=== PATIENT | female | born 1960 | race Caucasian/White ===

== ENCOUNTER 2016-09-18 12:55 | Inpatient (IN) | payer OTHER ==
[~2016-09-18] VITALS: Ht 172.7 cm; Wt 116.2 kg
[~2016-09-18 12:55] MED LIST: AVPAK AZITHROM250 M1 PO; HYDR25T PO; LISINOPRIL10 M1 PO; MODAFINIL100 M1 PO; PANTOPRAZOLE SO40 MG PO; PREDNISONE10 MG PO; VITAMIN D31000 I2 PO
[2016-09-18 13:17] VITALS: BP 123/80
[2016-09-18 14:21] LABS: BASO % 0.5 % (0.0-1.0); EOS # 0.6 10*3/uL (0.0-0.4); EOS % 8.4 % (1.0-4.0); HEMATOCRIT 41.6 % (37.0-47.0); HEMOGLOBIN 14.4 g/dl (12.0-16.0); IG # 0.1 10*3/uL (0.0-0.1); LYMPH # 2.1 10*3/uL (1.3-4.4); LYMPH % 27.8 % (27.0-41.0); MEAN CELL VOLUME 89.7 fl (81.0-99.0); MEAN CORPUSCULAR HGB CONC 34.6 g/dl (33.0-37.0); MEAN PLATELET VOLUME 9.2 fl (9.6-12.3); MONO # 0.5 10*3/uL (0.1-1.0); MONO % 6.8 % (3.0-9.0); NEUT # 4.1 10*3/uL (2.3-7.9); NEUT % 55.8 % (47.0-73.0); PLATELET COUNT AUTOMATED 347 10*3/uL (130-400); RED BLOOD COUNT 4.64 10*6/uL (4.10-5.10); RED CELL DISTRI WIDTH 12.6 % (0-14.5); WHITE BLOOD COUNT 7.4 10*3/uL (4.8-10.8)
[2016-09-18 14:31] LABS: PROTHROMBIN TIME 10.2 SECONDS (9.0-12.4)
[2016-09-18 14:38] LABS: ALBUMIN 3.3 gm/dl (3.1-4.5); BILIRUBIN, TOTAL 0.4 mg/dl (0.2-1.0); BUN 7 mg/dl (7-24); C-REACTIVE PROTEIN 1.21 MG/DL (0-0.3); CARBON DIOXIDE 26 mmol/L (21-32); CHLORIDE 100 mmol/L (98-107); CKMB 0.7 ng/ml (0.5-3.6); EST GLOM FILT AFRICAN AMERICAN > 60 ml/min; GLUCOSE 96 mg/dL (65-99); MAGNESIUM 1.8 mg/dL (1.5-2.1); POTASSIUM 2.9 mmol/L (3.5-5.1); SGOT/AST 14 IU/L (3-35); SGPT/ALT 25 U/L (12-78); SODIUM 138 mmol/L (136-145); TOTAL PROTEIN 6.6 gm/dL (6.4-8.2); TROPONIN I < 0.015 ng/ml (<0.045)
[2016-09-18 14:39] LABS: ALKALINE PHOSPHATASE 99 U/L (45-117); CPK 35 U/L (26-192)
[2016-09-18 15:30] VITALS: BP 130/78
[2016-09-18 16:00] LABS: BILIRUBIN NEGATIVE (NEGATIVE); BLOOD NEGATIVE (NEGATIVE); CLARITY CLEAR (CLEAR); COLOR YELLOW (YELLOW); GLUCOSE NEGATIVE (NEGATIVE); KETONE NEGATIVE (NEGATIVE); LEUKO ESTERASE NEGATIVE (NEGATIVE); NITRITE NEGATIVE (NEGATIVE); PH 6.5 (5.0-9.0); PROTEIN NEGATIVE (NEGATIVE); SPECIFIC GRAVITY <= 1.005 (1.005-1.030); UROBILINOGEN 0.2 E.U./dl (0.2-1.0)
[2016-09-18 16:06] LABS: BACTERIA TRACE; EPITHELIAL CELLS 15-20; RBC 0-2 rbc/hpf (0-2); URINE REFLEX COMMENT NO (NO); WBC 0-2 wbc/hpf (0-5)
[2016-09-18] MEDS ORDERED: TECFIDERA240 M2 (17:57)
[2016-09-18 18:38] VITALS: BP 129/73
[2016-09-18 19:05] VITALS: BP 143/70
[2016-09-18 19:30] VITALS: BP 143/70
[2016-09-18] MEDS ORDERED: VITAMIN D1000 IU PO (21:46)
[2016-09-19] VITALS: BP 117/78
[2016-09-19 00:40] LABS: CKMB < 0.5 ng/ml (0.5-3.6); CPK 51 U/L (26-192); TROPONIN I < 0.015 ng/ml (<0.045)
[2016-09-19 06:30] LABS: BASO % 0.4 % (0.0-1.0); EOS # 0.8 10*3/uL (0.0-0.4); EOS % 10.4 % (1.0-4.0); HEMATOCRIT 35.9 % (37.0-47.0); IG # 0.1 10*3/uL (0.0-0.1); LYMPH # 2.7 10*3/uL (1.3-4.4); LYMPH % 33.5 % (27.0-41.0); MEAN CELL VOLUME 90.7 fl (81.0-99.0); MEAN CORPUSCULAR HGB 31.1 pg (27.0-31.0); MEAN CORPUSCULAR HGB CONC 34.3 g/dl (33.0-37.0); MEAN PLATELET VOLUME 8.6 fl (9.6-12.3); MONO # 0.6 10*3/uL (0.1-1.0); MONO % 7.4 % (3.0-9.0); NEUT # 3.8 10*3/uL (2.3-7.9); NEUT % 47.4 % (47.0-73.0); PLATELET COUNT AUTOMATED 307 10*3/uL (130-400); RED BLOOD COUNT 3.96 10*6/uL (4.10-5.10); RED CELL DISTRI WIDTH 12.6 % (0-14.5)
[2016-09-19 06:37] LABS: HEMOGLOBIN 12.3 g/dl (12.0-16.0)
[2016-09-19 06:39] LABS: CPK 55 U/L (26-192)
[2016-09-19 06:49] LABS: TROPONIN I < 0.015 ng/ml (<0.045)
[2016-09-19 06:53] LABS: HEMOGLOBIN A1c 5.3 % (4.8-5.6)
[2016-09-19 07:04] LABS: ALBUMIN 2.7 gm/dl (3.1-4.5); ALKALINE PHOSPHATASE 76 U/L (45-117); BILIRUBIN, TOTAL 0.4 mg/dl (0.2-1.0); BUN 5 mg/dl (7-24); CARBON DIOXIDE 24 mmol/L (21-32); CHLORIDE 108 mmol/L (98-107); CHOLESTEROL 124 mg/dL (<200); EST GLOM FILT AFRICAN AMERICAN > 60 ml/min; FREE T4 1.28 ng/dl (0.76-1.46); GLUCOSE 79 mg/dL (65-99); HDL CHOLESTEROL 27 mg/dl (40-60); LDL CHOLESTEROL 70 mg/dL (9-159); MAGNESIUM 1.7 mg/dL (1.5-2.1); PHOSPHOROUS 2.2 mg/dL (2.5-4.9); POTASSIUM 3.1 mmol/L (3.5-5.1); SGOT/AST 16 IU/L (3-35); SGPT/ALT 22 U/L (12-78); SODIUM 144 mmol/L (136-145); TOTAL PROTEIN 5.4 gm/dL (6.4-8.2); TRIGLYCERIDES 134 mg/dl (<150); VLDL CHOLESTEROL 27 mg/dL (6-40)
[2016-09-19 07:13] LABS: PROTHROMBIN TIME 10.4 SECONDS (9.0-12.4)
[2016-09-19 07:49] LABS: VITAMIN D, 25-HYDROXY 29.2 ng/mL (30-100)
[2016-09-19 07:50] LABS: FOLIC ACID 10.72 ng/mL (>5.38)
[2016-09-19 08:00] VITALS: BP 152/86
[2016-09-19] MEDS ORDERED: B12,B-12,B 12500 MC1 PO (11:48)
[2016-09-19] MEDS ORDERED: KLOR-CON M2020 ME1 PO (11:49)
[2016-09-19 12:01] LABS: CKMB 1.1 ng/ml (0.5-3.6)
[2016-09-19 12:02] LABS: CPK 73 U/L (26-192); TROPONIN I < 0.015 ng/ml (<0.045)
== END 2016-09-19 13:09 | disposition home or self-care (01) | DRG 391 ==
LOC: ED 12:55 → 5E 17:30 → EDHOLD 17:30 → 5E 18:24
PROVIDERS: Emergency Medicine; Hospitalist
DX: K52.9 Noninfective gastroenteritis and colitis, unspecified (principal); E43 Unspecified severe protein-calorie malnutrition; E66.01 Morbid (severe) obesity due to excess calories; I10 Essential (primary) hypertension; E87.6 Hypokalemia; G35 Multiple sclerosis; J45.20 Mild intermittent asthma, uncomplicated; E55.9 Vitamin D deficiency, unspecified; Z90.49 Acquired absence of other specified parts of digestive tract; Z80.0 Family history of malignant neoplasm of digestive organs; Z83.3 Family history of diabetes mellitus; Z82.49 Family history of ischemic heart disease and other diseases of the circulatory system; Z88.0 Allergy status to penicillin; Z68.38 Body mass index [BMI] 38.0-38.9, adult; Z88.6 Allergy status to analgesic agent; Z88.1 Allergy status to other antibiotic agents; Z79.899 Other long term (current) drug therapy

== ENCOUNTER → 2016-12-04 | Outpatient (CLI) | payer OTHER ==
[~2016-12-04] MED LIST changes: +B12,B-12,B 12500 MC1 PO; +KLOR-CON M2020 ME1 PO; +TECFIDERA240 M2; +VITAMIN D1000 IU PO
== END | disposition home or self-care (01) ==
LOC: MAMMO 07:47
DX: Z12.31 Encounter for screening mammogram for malignant neoplasm of breast (principal); Z80.3 Family history of malignant neoplasm of breast; Z80.41 Family history of malignant neoplasm of ovary

== ENCOUNTER 2017-01-19 06:54 | Inpatient (IN) | payer OTHER ==
[~2017-01-19] VITALS: Ht 172.7 cm; Wt 112.6 kg
[2017-01-19] VITALS (7 sets, daily range): BP systolic 98–149; BP diastolic 46–88
[2017-01-19 07:39] LABS: BASO % 0.4 % (0.0-1.0); EOS # 0.1 10*3/uL (0.0-0.4); EOS % 0.5 % (1.0-4.0); HEMATOCRIT 46.8 % (37.0-47.0); HEMOGLOBIN 16.5 g/dl (12.0-16.0); IG # 0.1 10*3/uL (0.0-0.1); LYMPH # 0.7 10*3/uL (1.3-4.4); LYMPH % 5.8 % (27.0-41.0); MEAN CELL VOLUME 85.1 fl (81.0-99.0); MEAN CORPUSCULAR HGB CONC 35.3 g/dl (33.0-37.0); MEAN PLATELET VOLUME 8.6 fl (9.6-12.3); MONO # 0.6 10*3/uL (0.1-1.0); MONO % 5.4 % (3.0-9.0); NEUT # 9.8 10*3/uL (2.3-7.9); NEUT % 87.4 % (47.0-73.0); PLATELET COUNT AUTOMATED 422 10*3/uL (130-400); RED CELL DISTRI WIDTH 12.8 % (0-14.5); WHITE BLOOD COUNT 11.2 10*3/uL (4.8-10.8)
[2017-01-19 07:53] LABS: ALBUMIN 3.8 gm/dl (3.1-4.5); POTASSIUM 3.4 mmol/L (3.5-5.1); TOTAL PROTEIN 7.8 gm/dL (6.4-8.2)
[2017-01-19 11:09] LABS: BILIRUBIN NEGATIVE (NEGATIVE); BLOOD TRACE-LYSED (NEGATIVE); CLARITY SL CLOUDY (CLEAR); COLOR YELLOW (YELLOW); GLUCOSE NEGATIVE (NEGATIVE); KETONE NEGATIVE (NEGATIVE); LEUKO ESTERASE NEGATIVE (NEGATIVE); NITRITE NEGATIVE (NEGATIVE); PH 5.5 (5.0-9.0); PROTEIN 2+ (NEGATIVE); SPECIFIC GRAVITY <= 1.005 (1.005-1.030)
[2017-01-19 11:19] LABS: BACTERIA 2+
[2017-01-19 11:20] LABS: RBC 0-2 rbc/hpf (0-2)
[2017-01-19] MEDS ORDERED: TECFIDERA240 M2 PO (11:47)
[2017-01-20] VITALS: BP 126/68
[2017-01-20 05:40] LABS: URINE REFLEX COMMENT YES (NO)
[2017-01-20 06:45] LABS: BASO % 0.4 % (0.0-1.0); EOS # 0.3 10*3/uL (0.0-0.4); EOS % 4.6 % (1.0-4.0); LYMPH # 1.1 10*3/uL (1.3-4.4); MEAN CELL VOLUME 87.6 fl (81.0-99.0); MEAN CORPUSCULAR HGB 29.3 pg (27.0-31.0); MEAN CORPUSCULAR HGB CONC 33.4 g/dl (33.0-37.0); MEAN PLATELET VOLUME 9.2 fl (9.6-12.3); MONO # 0.6 10*3/uL (0.1-1.0); MONO % 8.7 % (3.0-9.0); NEUT # 4.6 10*3/uL (2.3-7.9); NEUT % 68.9 % (47.0-73.0); RED BLOOD COUNT 4.58 10*6/uL (4.10-5.10); RED CELL DISTRI WIDTH 13.2 % (0-14.5); WHITE BLOOD COUNT 6.7 10*3/uL (4.8-10.8)
[2017-01-20 07:01] LABS: HEMATOCRIT 40.1 % (37.0-47.0); HEMOGLOBIN 13.4 g/dl (12.0-16.0); HEMOGLOBIN A1c 5.3 % (4.8-5.6); PLATELET COUNT AUTOMATED 274 10*3/uL (130-400)
[2017-01-20 07:31] LABS: PROTHROMBIN TIME 10.4 SECONDS (9.0-12.4)
[2017-01-20 07:33] LABS: VITAMIN D, 25-HYDROXY 35.2 ng/mL (30-100)
[2017-01-20 07:34] LABS: FOLIC ACID 20.61 ng/mL (>5.38)
[2017-01-20 07:39] LABS: CHLORIDE 100 mmol/L (98-107); SODIUM 139 mmol/L (136-145)
[2017-01-20 07:49] LABS: ALBUMIN 3.3 gm/dl (3.1-4.5); ALKALINE PHOSPHATASE 139 U/L (45-117); BILIRUBIN, TOTAL 1.1 mg/dl (0.2-1.0); BUN 6 mg/dl (7-24); CARBON DIOXIDE 27 mmol/L (21-32); CHOLESTEROL 126 mg/dL (<200); EST GLOM FILT AFRICAN AMERICAN > 60 ml/min; FREE T4 1.46 ng/dl (0.76-1.46); GLUCOSE 80 mg/dL (65-99); HDL CHOLESTEROL 36 mg/dl (40-60); LDL CHOLESTEROL 66 mg/dL (9-159); PHOSPHOROUS 2.6 mg/dL (2.5-4.9); SGOT/AST 77 IU/L (3-35); SGPT/ALT 103 U/L (12-78); TOTAL PROTEIN 6.4 gm/dL (6.4-8.2); TRIGLYCERIDES 119 mg/dl (<150); VLDL CHOLESTEROL 24 mg/dL (6-40)
[2017-01-20 08:00] VITALS: BP 117/81
[2017-01-20 12:00] VITALS: BP 106/73
[2017-01-20 16:00] VITALS: BP 145/71
[2017-01-20 20:00] VITALS: BP 154/98
[2017-01-21] VITALS: BP 148/79
[2017-01-21 06:24] LABS: BASO # 0.1 10*3/uL (0.0-0.1); BASO % 0.9 % (0.0-1.0); EOS # 0.3 10*3/uL (0.0-0.4); EOS % 4.2 % (1.0-4.0); HEMATOCRIT 39.2 % (37.0-47.0); LYMPH # 1.7 10*3/uL (1.3-4.4); MEAN CELL VOLUME 90.5 fl (81.0-99.0); MEAN CORPUSCULAR HGB CONC 33.2 g/dl (33.0-37.0); MEAN PLATELET VOLUME 9.3 fl (9.6-12.3); MONO # 0.7 10*3/uL (0.1-1.0); MONO % 9.8 % (3.0-9.0); NEUT % 59.8 % (47.0-73.0); PLATELET COUNT AUTOMATED 272 10*3/uL (130-400); RED BLOOD COUNT 4.33 10*6/uL (4.10-5.10); RED CELL DISTRI WIDTH 13.2 % (0-14.5); WHITE BLOOD COUNT 6.7 10*3/uL (4.8-10.8)
[2017-01-21 06:50] LABS: ALBUMIN 3.2 gm/dl (3.1-4.5); BUN 7 mg/dl (7-24); CARBON DIOXIDE 26 mmol/L (21-32); CHLORIDE 106 mmol/L (98-107); EST GLOM FILT AFRICAN AMERICAN > 60 ml/min; GLUCOSE 64 mg/dL (65-99); POTASSIUM 3.7 mmol/L (3.5-5.1); SGOT/AST 33 IU/L (3-35); SGPT/ALT 67 U/L (12-78); SODIUM 142 mmol/L (136-145)
[2017-01-21 06:52] LABS: ALKALINE PHOSPHATASE 134 U/L (45-117); BILIRUBIN, TOTAL 0.7 mg/dl (0.2-1.0); TOTAL PROTEIN 6.5 gm/dL (6.4-8.2)
[2017-01-21 08:00] VITALS: BP 138/68
[2017-01-21 12:00] VITALS: BP 146/80
[2017-01-21 16:00] VITALS: BP 146/69
[2017-01-21 20:00] VITALS: BP 155/99
[2017-01-22] VITALS: BP 154/94
[2017-01-22 06:09] LABS: BASO % 0.6 % (0.0-1.0); EOS # 0.3 10*3/uL (0.0-0.4); EOS % 3.5 % (1.0-4.0); HEMATOCRIT 39.1 % (37.0-47.0); HEMOGLOBIN 12.4 g/dl (12.0-16.0); LYMPH # 1.3 10*3/uL (1.3-4.4); LYMPH % 17.9 % (27.0-41.0); MEAN CELL VOLUME 92.4 fl (81.0-99.0); MEAN CORPUSCULAR HGB 29.3 pg (27.0-31.0); MEAN CORPUSCULAR HGB CONC 31.7 g/dl (33.0-37.0); MEAN PLATELET VOLUME 9.3 fl (9.6-12.3); MONO # 0.7 10*3/uL (0.1-1.0); MONO % 9.4 % (3.0-9.0); NEUT # 4.9 10*3/uL (2.3-7.9); NEUT % 68.2 % (47.0-73.0); PLATELET COUNT AUTOMATED 292 10*3/uL (130-400); RED BLOOD COUNT 4.23 10*6/uL (4.10-5.10); RED CELL DISTRI WIDTH 13.3 % (0-14.5); WHITE BLOOD COUNT 7.2 10*3/uL (4.8-10.8)
[2017-01-22 06:22] LABS: BUN 5 mg/dl (7-24); CARBON DIOXIDE 24 mmol/L (21-32); CHLORIDE 108 mmol/L (98-107); EST GLOM FILT AFRICAN AMERICAN > 60 ml/min; GLUCOSE 62 mg/dL (65-99); POTASSIUM 3.9 mmol/L (3.5-5.1); SODIUM 143 mmol/L (136-145)
[2017-01-22 08:00] VITALS: BP 160/90
[2017-01-22 12:00] VITALS: BP 113/70
[2017-01-22 16:00] VITALS: BP 157/86
[2017-01-22 20:00] VITALS: BP 154/98
[2017-01-23] VITALS: BP 138/70
[2017-01-23 08:00] VITALS: BP 138/70
[2017-01-23 12:00] VITALS: BP 168/101
[2017-01-23 16:00] VITALS: BP 151/61
[2017-01-23] MEDS ORDERED: MYLICON, MYLANT80 MG PO (18:52)
[2017-01-23 20:00] VITALS: BP 150/89
== END 2017-01-23 20:06 | disposition home or self-care (01) | DRG 388 ==
LOC: ED 06:54 → EDHOLD 11:08 → 5E 11:08
PROVIDERS: Emergency Medicine; Family Medicine; Internal Medicine Nephrology
DX: K56.2 Volvulus (principal); N17.0 Acute kidney failure with tubular necrosis; E87.1 Hypo-osmolality and hyponatremia; D75.1 Secondary polycythemia; E66.01 Morbid (severe) obesity due to excess calories; G35 Multiple sclerosis; D72.829 Elevated white blood cell count, unspecified; D72.810 Lymphocytopenia; E87.6 Hypokalemia; D47.3 Essential (hemorrhagic) thrombocythemia; R73.9 Hyperglycemia, unspecified; R82.71 Bacteriuria; K21.9 Gastro-esophageal reflux disease without esophagitis; K58.9 Irritable bowel syndrome, unspecified; J45.909 Unspecified asthma, uncomplicated; I10 Essential (primary) hypertension; Z68.37 Body mass index [BMI] 37.0-37.9, adult; Z90.49 Acquired absence of other specified parts of digestive tract; Z90.710 Acquired absence of both cervix and uterus; Z88.6 Allergy status to analgesic agent; Z88.0 Allergy status to penicillin; Z88.1 Allergy status to other antibiotic agents; Z80.8 Family history of malignant neoplasm of other organs or systems; Z83.3 Family history of diabetes mellitus; Z82.49 Family history of ischemic heart disease and other diseases of the circulatory system; Z79.899 Other long term (current) drug therapy; E87.8 Other disorders of electrolyte and fluid balance, not elsewhere classified

== ENCOUNTER → 2017-12-05 | Outpatient (CLI) | payer OTHER ==
[~2017-12-05] MED LIST changes: +MYLICON, MYLANT80 MG PO; +TECFIDERA240 M2 PO
== END | disposition home or self-care (01) ==
LOC: MAMMO 11-28 10:00
DX: Z12.31 Encounter for screening mammogram for malignant neoplasm of breast (principal)

== ENCOUNTER 2018-04-09 15:39 | Emergency (ER) | payer OTHER ==
[~2018-04-09] VITALS: Ht 172.7 cm; Wt 108.4 kg
[2018-04-09 15:39] VITALS: BP 159/82
[2018-04-09 16:03] VITALS: BP 158/95
[2018-04-09 16:33] LABS: BASO % 0.6 % (0.0-1.0); EOS # 0.2 10*3/uL (0.0-0.4); EOS % 2.5 % (1.0-4.0); HEMATOCRIT 42.2 % (37.0-47.0); HEMOGLOBIN 14.9 g/dl (12.0-16.0); LYMPH # 0.8 10*3/uL (1.3-4.4); LYMPH % 12.5 % (27.0-41.0); MEAN CELL VOLUME 88.5 fl (81.0-99.0); MEAN CORPUSCULAR HGB 31.2 pg (27.0-31.0); MEAN CORPUSCULAR HGB CONC 35.3 g/dl (33.0-37.0); MEAN PLATELET VOLUME 8.7 fl (9.6-12.3); MONO # 0.6 10*3/uL (0.1-1.0); MONO % 9.5 % (3.0-9.0); NEUT # 4.7 10*3/uL (2.3-7.9); NEUT % 74.6 % (47.0-73.0); PLATELET COUNT AUTOMATED 285 10*3/uL (130-400); RED BLOOD COUNT 4.77 10*6/uL (4.10-5.10); RED CELL DISTRI WIDTH 12.2 % (0-14.5); WHITE BLOOD COUNT 6.3 10*3/uL (4.8-10.8)
[2018-04-09 16:47] LABS: ALBUMIN 4.1 gm/dl (3.1-4.5); ALKALINE PHOSPHATASE 109 U/L (45-117); BUN 7 mg/dl (7-24); CHLORIDE 94 mmol/L (98-107); CREATININE 0.64 mg/dL (0.55-1.02); POTASSIUM 3.4 mmol/L (3.5-5.1); SGOT/AST 13 IU/L (3-35); SGPT/ALT 17 U/L (12-78); SODIUM 130 mmol/L (136-145); TOTAL PROTEIN 7.7 gm/dL (6.4-8.2)
[2018-04-09 18:17] VITALS: BP 180/90
[2018-04-09 20:05] VITALS: BP 170/80
[2018-04-09 21:45] VITALS: BP 158/86
== END 2018-04-09 22:08 | disposition short-term general hospital (02) ==
LOC: ED 15:39 → EDHOLD 18:05 → ED 18:05
PROVIDERS: Physician Assistant
DX: J44.1 Chronic obstructive pulmonary disease with (acute) exacerbation (principal); E87.1 Hypo-osmolality and hyponatremia; Z88.1 Allergy status to other antibiotic agents; Z88.0 Allergy status to penicillin; Z88.5 Allergy status to narcotic agent; Z79.899 Other long term (current) drug therapy; Z90.710 Acquired absence of both cervix and uterus; Z90.49 Acquired absence of other specified parts of digestive tract

== ENCOUNTER → 2018-12-11 | Outpatient (CLI) | payer OTHER | END | disposition home or self-care (01) | LOC: MAMMO 07:47 | DX: Z12.31 Encounter for screening mammogram for malignant neoplasm of breast (principal) ==

== ENCOUNTER → 2019-01-01 | Outpatient (CLI) | payer OTHER | END | disposition home or self-care (01) | LOC: MAMMO 12:49 | DX: R92.8 Other abnormal and inconclusive findings on diagnostic imaging of breast (principal) ==

== ENCOUNTER → 2020-06-17 | Outpatient (CLI) | payer OTHER ==
[~2020-06-17] MED LIST changes: +NORCO 5-325 TA1 EACH PO
== END | disposition home or self-care (01) ==
LOC: MAMMO 14:01
PROVIDERS: ATTEND Nurse Practitioner Family
DX: Z12.31 Encounter for screening mammogram for malignant neoplasm of breast (principal)

== ENCOUNTER 2020-07-11 12:07 | Emergency (ER) | payer OTHER ==
[~2020-07-11] VITALS: Wt 113.4 kg
[~2020-07-11 12:07] MED LIST changes: -NORCO 5-325 TA1 EACH PO
[2020-07-11] MEDS ORDERED: NORCO 5-325 TA1 EACH PO (13:53)
== END 2020-07-11 14:19 | disposition home or self-care (01) ==
LOC: ED 12:07
DX: S82.831A Other fracture of upper and lower end of right fibula, initial encounter for closed fracture (principal); S93.402A Sprain of unspecified ligament of left ankle, initial encounter; M25.562 Pain in left knee; I10 Essential (primary) hypertension; K21.9 Gastro-esophageal reflux disease without esophagitis; M19.90 Unspecified osteoarthritis, unspecified site; Z88.0 Allergy status to penicillin; Z88.1 Allergy status to other antibiotic agents; Z88.5 Allergy status to narcotic agent; Z79.899 Other long term (current) drug therapy; Z90.49 Acquired absence of other specified parts of digestive tract; Z90.711 Acquired absence of uterus with remaining cervical stump; Z90.89 Acquired absence of other organs; W19.XXXA Unspecified fall, initial encounter; Y93.89 Activity, other specified; Y92.89 Other specified places as the place of occurrence of the external cause; Y99.8 Other external cause status

== ENCOUNTER 2021-07-06 20:12 | Inpatient (IN) | payer OTHER ==
[~2021-07-06] VITALS: Ht 167.6 cm; Wt 71.2 kg
[~2021-07-06 20:12] MED LIST changes: +NORCO 5-325 TA1 EACH PO
[2021-07-06 20:35] VITALS: BP 130/75
[2021-07-06 21:11] LABS: BASO % 0.2 % (0.0-1.0); HEMATOCRIT 40.6 % (37.0-47.0); LYMPH # 0.6 10*3/uL (1.3-4.4); LYMPH % 12.2 % (27.0-41.0); MEAN CELL VOLUME 86.8 fl (81.0-99.0); MEAN CORPUSCULAR HGB CONC 35.7 g/dl (33.0-37.0); MEAN PLATELET VOLUME 8.5 fl (9.6-12.3); MONO # 0.2 10*3/uL (0.1-1.0); NEUT # 3.9 10*3/uL (2.3-7.9); PLATELET COUNT AUTOMATED 319 10*3/uL (130-400); RED BLOOD COUNT 4.68 10*6/uL (4.10-5.10); WHITE BLOOD COUNT 4.8 10*3/uL (4.8-10.8)
[2021-07-06 21:28] LABS: ALBUMIN 3.1 gm/dl (3.1-4.5); ALKALINE PHOSPHATASE 86 U/L (45-117); BUN 10 mg/dl (7-24); CHLORIDE 88 mmol/L (98-107); CREATININE 0.61 mg/dL (0.55-1.02); SGOT/AST 27 IU/L (3-35); SGPT/ALT 27 U/L (12-78); SODIUM 123 mmol/L (136-145); TOTAL PROTEIN 7.1 gm/dL (6.4-8.2)
[2021-07-07 00:25] VITALS: BP 132/72
[2021-07-07 01:50] LABS: BUN 9 mg/dl (7-24); CHLORIDE 91 mmol/L (98-107); CREATININE 0.56 mg/dL (0.55-1.02); POTASSIUM 3.1 mmol/L (3.5-5.1); SODIUM 123 mmol/L (136-145)
[2021-07-07 04:00] VITALS: BP 137/77
[2021-07-07 04:59] LABS: ALBUMIN 2.8 gm/dl (3.1-4.5); ALKALINE PHOSPHATASE 76 U/L (45-117); BUN 8 mg/dl (7-24); CHLORIDE 93 mmol/L (98-107); CREATININE 0.62 mg/dL (0.55-1.02); SGOT/AST 29 IU/L (3-35); SGPT/ALT 24 U/L (12-78); SODIUM 124 mmol/L (136-145); TOTAL PROTEIN 6.5 gm/dL (6.4-8.2)
[2021-07-07 06:26] VITALS: BP 103/54
[2021-07-07] MEDS ORDERED: POTASSIUM CHLO10 ME5 PO (08:20)
[2021-07-07] MEDS ORDERED: MONTELUKAST SOD10 MG PO (08:20)
[2021-07-07] MEDS ORDERED: LISINOPRIL30 MG PO (08:21)
[2021-07-07] MEDS ORDERED: MODAFINIL100 M1 PO (08:21)
[2021-07-07] MEDS ORDERED: DULCOLAX STOOL100 M1 PO (08:24)
[2021-07-07] MEDS ORDERED: TUSSIN400 MG PO (08:24)
[2021-07-07] MEDS ORDERED: MELATONIN3 M3 PO (08:25)
[2021-07-07 11:28] VITALS: BP 130/67
[2021-07-07] MEDS ORDERED: PROVENTIL HFA6.7 GM INH (12:24)
[2021-07-07] MEDS ORDERED: SYMB160 INH (12:25)
[2021-07-07] MEDS ORDERED: SALINE NASAL M126 ML NAS (12:26)
[2021-07-07 16:00] VITALS: BP 137/77
[2021-07-07 20:00] VITALS: BP 128/72; BP 137/77
[2021-07-08] VITALS: BP 126/64
[2021-07-08 07:48] LABS: ALBUMIN 2.9 gm/dl (3.1-4.5); ALKALINE PHOSPHATASE 78 U/L (45-117); BUN 6 mg/dl (7-24); CHLORIDE 96 mmol/L (98-107); CREATININE 0.64 mg/dL (0.55-1.02); POTASSIUM 3.5 mmol/L (3.5-5.1); SGOT/AST 29 IU/L (3-35); SGPT/ALT 25 U/L (12-78); SODIUM 129 mmol/L (136-145)
[2021-07-08 07:52] LABS: BASO % 0.2 % (0.0-1.0); EOS % 0.2 % (1.0-4.0); HEMATOCRIT 41.1 % (37.0-47.0); LYMPH # 0.9 10*3/uL (1.3-4.4); MEAN CORPUSCULAR HGB CONC 34.1 g/dl (33.0-37.0); MEAN PLATELET VOLUME 8.6 fl (9.6-12.3); MONO # 0.4 10*3/uL (0.1-1.0); MONO % 8.4 % (3.0-9.0); NEUT # 3.7 10*3/uL (2.3-7.9); NEUT % 71.6 % (47.0-73.0); PLATELET COUNT AUTOMATED 355 10*3/uL (130-400); RED BLOOD COUNT 4.51 10*6/uL (4.10-5.10); RED CELL DISTRI WIDTH 12.3 % (0-14.5); WHITE BLOOD COUNT 5.1 10*3/uL (4.8-10.8)
[2021-07-08 07:53] LABS: MEAN CELL VOLUME 91.1 fl (81.0-99.0)
[2021-07-08 08:00] VITALS: BP 121/94
[2021-07-08 12:00] VITALS: BP 110/60
[2021-07-08 16:00] VITALS: BP 117/79
[2021-07-08 20:00] VITALS: BP 124/55
[2021-07-09] VITALS: BP 133/57
[2021-07-09 08:00] VITALS: BP 106/88
[2021-07-09 12:00] VITALS: BP 137/77
[2021-07-09 17:00] VITALS: BP 144/89
[2021-07-09 20:00] VITALS: BP 127/67
[2021-07-10] VITALS: BP 127/87
[2021-07-10 06:20] LABS: CHLORIDE 100 mmol/L (98-107); POTASSIUM 3.2 mmol/L (3.5-5.1); SODIUM 134 mmol/L (136-145)
[2021-07-10 06:29] LABS: BASO % 0.3 % (0.0-1.0); EOS % 0.3 % (1.0-4.0); HEMATOCRIT 37.4 % (37.0-47.0); LYMPH # 0.8 10*3/uL (1.3-4.4); LYMPH % 24.5 % (27.0-41.0); MEAN CELL VOLUME 90.6 fl (81.0-99.0); MEAN CORPUSCULAR HGB 30.3 pg (27.0-31.0); MEAN CORPUSCULAR HGB CONC 33.4 g/dl (33.0-37.0); MEAN PLATELET VOLUME 8.3 fl (9.6-12.3); MONO # 0.5 10*3/uL (0.1-1.0); NEUT # 1.9 10*3/uL (2.3-7.9); NEUT % 56.8 % (47.0-73.0); PLATELET COUNT AUTOMATED 370 10*3/uL (130-400); RED BLOOD COUNT 4.13 10*6/uL (4.10-5.10); WHITE BLOOD COUNT 3.3 10*3/uL (4.8-10.8)
[2021-07-10 06:32] LABS: ALBUMIN 2.5 gm/dl (3.1-4.5); ALKALINE PHOSPHATASE 69 U/L (45-117); BUN 6 mg/dl (7-24); SGOT/AST 18 IU/L (3-35); SGPT/ALT 22 U/L (12-78); TOTAL PROTEIN 6.2 gm/dL (6.4-8.2)
[2021-07-10 08:00] VITALS: BP 116/65
[2021-07-10 12:00] VITALS: BP 118/93
[2021-07-10 16:00] VITALS: BP 152/89
[2021-07-10 20:00] VITALS: BP 135/67
[2021-07-11] VITALS: BP 145/68
[2021-07-11 06:42] LABS: HEMATOCRIT 41.3 % (37.0-47.0); MEAN CELL VOLUME 92.2 fl (81.0-99.0); MEAN CORPUSCULAR HGB 30.4 pg (27.0-31.0); MEAN CORPUSCULAR HGB CONC 32.9 g/dl (33.0-37.0); MEAN PLATELET VOLUME 8.2 fl (9.6-12.3); PLATELET COUNT AUTOMATED 436 10*3/uL (130-400); RED BLOOD COUNT 4.48 10*6/uL (4.10-5.10); RED CELL DISTRI WIDTH 12.3 % (0-14.5); WHITE BLOOD COUNT 4.7 10*3/uL (4.8-10.8)
[2021-07-11 06:59] LABS: BUN 7 mg/dl (7-24); CHLORIDE 101 mmol/L (98-107); CREATININE 0.53 mg/dL (0.55-1.02); POTASSIUM 3.3 mmol/L (3.5-5.1); SODIUM 136 mmol/L (136-145)
[2021-07-11 08:00] VITALS: BP 120/46
[2021-07-11 08:24] LABS: ATYPICAL LYMPHS 3 % (0-0); POLYCHROMASIA SLIGHT; TOTAL CELLS COUNTED 100 #CELLS
[2021-07-11 08:25] LABS: OVALOCYTES FEW; PLATELET SUFFICIENCY HIGH (NORMAL)
[2021-07-11 12:00] VITALS: BP 124/44
[2021-07-11 16:00] VITALS: BP 161/78
[2021-07-11 20:00] VITALS: BP 137/77
[2021-07-12] VITALS: BP 135/65
[2021-07-12 06:22] LABS: CHLORIDE 104 mmol/L (98-107); POTASSIUM 3.4 mmol/L (3.5-5.1); SODIUM 137 mmol/L (136-145)
[2021-07-12 06:28] LABS: BASO % 0.3 % (0.0-1.0); BUN 8 mg/dl (7-24); CREATININE 0.53 mg/dL (0.55-1.02); EOS % 0.2 % (1.0-4.0); HEMATOCRIT 37.9 % (37.0-47.0); LYMPH # 1.1 10*3/uL (1.3-4.4); LYMPH % 18.9 % (27.0-41.0); MEAN CELL VOLUME 91.8 fl (81.0-99.0); MEAN CORPUSCULAR HGB 30.5 pg (27.0-31.0); MEAN CORPUSCULAR HGB CONC 33.2 g/dl (33.0-37.0); MEAN PLATELET VOLUME 8.2 fl (9.6-12.3); MONO # 0.6 10*3/uL (0.1-1.0); MONO % 10.5 % (3.0-9.0); NEUT % 68.4 % (47.0-73.0); PLATELET COUNT AUTOMATED 382 10*3/uL (130-400); RED BLOOD COUNT 4.13 10*6/uL (4.10-5.10); RED CELL DISTRI WIDTH 12.3 % (0-14.5); WHITE BLOOD COUNT 5.8 10*3/uL (4.8-10.8)
[2021-07-12 08:00] VITALS: BP 152/82
[2021-07-12 12:00] VITALS: BP 118/63
[2021-07-12 16:00] VITALS: BP 145/66
[2021-07-12 20:00] VITALS: BP 134/65
[2021-07-13] VITALS: BP 137/68
[2021-07-13 06:27] LABS: BUN 9 mg/dl (7-24); CHLORIDE 104 mmol/L (98-107); POTASSIUM 3.4 mmol/L (3.5-5.1); SODIUM 140 mmol/L (136-145)
[2021-07-13 06:30] LABS: CREATININE 0.46 mg/dL (0.55-1.02)
[2021-07-13 06:31] LABS: BASO % 0.2 % (0.0-1.0); EOS % 0.2 % (1.0-4.0); HEMATOCRIT 36.7 % (37.0-47.0); LYMPH % 20.7 % (27.0-41.0); MEAN CELL VOLUME 92.7 fl (81.0-99.0); MEAN CORPUSCULAR HGB 30.6 pg (27.0-31.0); MEAN PLATELET VOLUME 8.3 fl (9.6-12.3); MONO # 0.7 10*3/uL (0.1-1.0); MONO % 13.2 % (3.0-9.0); NEUT # 3.2 10*3/uL (2.3-7.9); NEUT % 64.1 % (47.0-73.0); PLATELET COUNT AUTOMATED 381 10*3/uL (130-400); RED BLOOD COUNT 3.96 10*6/uL (4.10-5.10); RED CELL DISTRI WIDTH 12.4 % (0-14.5); WHITE BLOOD COUNT 4.9 10*3/uL (4.8-10.8)
[2021-07-13 08:00] VITALS: BP 133/70
[2021-07-13 12:00] VITALS: BP 141/60
[2021-07-13] MEDS ORDERED: DECADRON6 M1 PO (13:05)
[2021-07-13] MEDS ORDERED: ONDANSETRON4 MG SL (13:05)
== END 2021-07-13 14:12 | disposition home or self-care (01) | DRG 177 ==
LOC: ED 20:12 → EDHOLD 23:49 → 4E 07-07 17:50
PROVIDERS: Internal Medicine; ADMIT Internal Medicine; ATTEND Internal Medicine
PROC: XW033E5 Introduction of Remdesivir Anti-infective into Peripheral Vein, Percutaneous Approach, New Technology Group 5 (ICD-10-PCS; 2021-07-08)
PROC: 05HB33Z Insertion of Infusion Device into Right Basilic Vein, Percutaneous Approach (ICD-10-PCS; principal; 2021-07-11)
DX: U07.1 COVID-19 (principal); J96.01 Acute respiratory failure with hypoxia; E87.1 Hypo-osmolality and hyponatremia; E44.0 Moderate protein-calorie malnutrition; E87.6 Hypokalemia; I73.00 Raynaud's syndrome without gangrene; K58.1 Irritable bowel syndrome with constipation; J45.909 Unspecified asthma, uncomplicated; E87.8 Other disorders of electrolyte and fluid balance, not elsewhere classified; R73.9 Hyperglycemia, unspecified; K21.9 Gastro-esophageal reflux disease without esophagitis; I10 Essential (primary) hypertension; G35 Multiple sclerosis; Z88.0 Allergy status to penicillin; Z88.5 Allergy status to narcotic agent; Z88.1 Allergy status to other antibiotic agents; Z79.1 Long term (current) use of non-steroidal anti-inflammatories (NSAID); Z79.899 Other long term (current) drug therapy; Z68.25 Body mass index [BMI] 25.0-25.9, adult; Z90.49 Acquired absence of other specified parts of digestive tract; Z90.710 Acquired absence of both cervix and uterus; Z83.3 Family history of diabetes mellitus; Z82.49 Family history of ischemic heart disease and other diseases of the circulatory system; Z79.51 Long term (current) use of inhaled steroids

== ENCOUNTER → 2021-09-09 | Outpatient (CLI) | payer OTHER ==
[~2021-09-09] MED LIST changes: +DECADRON6 M1 PO; +DULCOLAX STOOL100 M1 PO; +LISINOPRIL30 MG PO; +MELATONIN3 M3 PO; +MONTELUKAST SOD10 MG PO; +ONDANSETRON4 MG SL; +POTASSIUM CHLO10 ME5 PO; +PROVENTIL HFA6.7 GM INH; +SALINE NASAL M126 ML NAS; +SYMB160 INH; +TUSSIN400 MG PO
== END | disposition home or self-care (01) ==
LOC: US 00:27
PROVIDERS: ATTEND Nurse Practitioner Adult Health
DX: R60.0 Localized edema (principal)

== ENCOUNTER → 2022-07-26 | Outpatient (CLI) | payer OTHER | END | disposition home or self-care (01) | LOC: MAMMO 10:54 | PROVIDERS: ATTEND Internal Medicine | DX: Z12.31 Encounter for screening mammogram for malignant neoplasm of breast (principal) ==

== ENCOUNTER → 2023-01-17 | Outpatient (CLI) | payer OTHER | END | disposition home or self-care (01) | LOC: MRI 02:10 | PROVIDERS: ATTEND Student in an Organized Health Care Education/Training Program | DX: G35 Multiple sclerosis (principal) ==

== ENCOUNTER → 2024-05-05 | Outpatient (CLI) | payer OTHER | END | disposition home or self-care (01) | LOC: MAMMO 02:20 | PROVIDERS: ATTEND Internal Medicine | DX: Z12.31 Encounter for screening mammogram for malignant neoplasm of breast (principal) ==

== ENCOUNTER → 2024-09-12 | Outpatient (CLI) | payer OTHER | END | disposition home or self-care (01) | LOC: RAD 01:09 | PROVIDERS: ATTEND Internal Medicine | DX: Z13.820 Encounter for screening for osteoporosis (principal); M81.0 Age-related osteoporosis without current pathological fracture; N95.9 Unspecified menopausal and perimenopausal disorder ==